=== PATIENT | female | born 1995 | race African-American/Black ===

== ENCOUNTER 2016-09-16 22:16 | Emergency (ER) | payer MEDICAID ==
--- NOTE | 2016-09-16 22:43 | EDM.PDOC ---
ED HPI GENERAL MEDICAL PROBLEM - General Chief Complaint: Abdominal Pain Stated Complaint: PT HAS PAIN ON LT SIDE Time Seen by Provider: 09/16/16 22:28 - History of Present Illness INITIAL COMMENTS - FREE TEXT/NARRATIVE: HISTORY AND PHYSICAL: History of present illness: Patient is 21-year-old female presents with concern of left upper quadrant abdominal pain 1 day she denies trauma denies fever chills nausea vomiting or urinary symptoms chest pain cough shortness of breath Review of systems: As per history of present illness and below otherwise all systems reviewed and negative. Past medical history: As per history of present illness and as reviewed below otherwise noncontributory. Surgical history: As per history of present illness and as reviewed below otherwise noncontributory. Social history: No reported history of drug or alcohol abuse. Family history: As per history of present illness and as reviewed below otherwise noncontributory. Physical exam: HEENT: Atraumatic, normocephalic, pupils reactive, negative for conjunctival pallor or scleral icterus, mucous membranes moist, throat clear, neck supple, nontender, trachea midline. Lungs: Clear to auscultation, breath sounds equal bilaterally, chest nontender. Heart: S1S2, regular, negative for clicks, rubs, or JVD. Abdomen: Soft, nondistended, nontender. Negative for masses or hepatosplenomegaly. Negative for costovertebral tenderness. Pelvis: Stable nontender. Genitourinary: Deferred. Rectal: Deferred. Extremities: Atraumatic, negative for cords or calf pain. Neurovascular unremarkable. Neuro: Awake, alert, oriented. Cranial nerves II through XII unremarkable. Cerebellum unremarkable. Motor and sensory unremarkable throughout. Exam nonfocal. Diagnostics: CBC CMP UA hCG chest x-ray Therapeutics: None Impression: #1 nonspecific abdominal pain Definitive disposition and diagnosis as appropriate pending reevaluation and review of above. Left Upper Abdomen Pain Score (Numeric/FACES): 4 - Related Data Allergies Allergy/AdvReac Type Severity Reaction Status Date / Time seosonal Allergy Sneezing Uncoded 09/16/16 22:29 Home Meds: Home Meds . [No Known Home Meds] 09/16/16 [History] Past Medical History - Past Health History Medical/Surgical History: Denies Medical/Surgical History Social & Family History - Family History Family Medical History: Noncontributory - Tobacco Use Smoking Status *Q: Never Smoker Second Hand Smoke Exposure: No - Caffeine Use Caffeine Use: Reports: None - Recreational Drug Use Recreational Drug Use: No ED ROS GENERAL - Review of Systems Review Of Systems: ROS reveals no pertinent complaints other than HPI. ED EXAM, GENERAL - Physical Exam Exam: See Below (See dictation) Course - Vital Signs Last Recorded V/S: Last Vital Signs Temp 36.4 C 09/16/16 22:23 Pulse 63 09/16/16 22:23 Resp 18 09/16/16 22:23 BP 140/86 09/16/16 22:23 Pulse Ox 99 09/16/16 22:23 - Orders/Labs/Meds Orders: Active Orders 24 hr Category Date Time Status Chest 1V Frontal [CR] Stat Exams 09/16/16 22:32 Ordered CBC WITH AUTO DIFF [HEME] Stat Lab 09/16/16 22:32 Ordered COMPREHENSIVE METABOLIC PN,CMP [CHEM] Stat Lab 09/16/16 22:32 Ordered HCG QUALITATIVE,URINE [URCHEM] Stat Lab 09/16/16 22:37 Received UA W/MICROSCOPIC [URIN] Stat Lab 09/16/16 22:37 Received Departure - Departure Time of Disposition: 22:42 Disposition: Home, Self-Care 01 Condition: Good Clinical Impression: Abdominal pain - Discharge Information Forms: ED Department Discharge Additional Instructions: The following information is given to patients seen in the emergency department who are being discharged to home. This information is to outline your options for follow-up care. We provide all patients seen in our emergency department with a follow-up referral. The need for follow-up, as well as the timing and circumstances, are variable depending upon the specifics of your emergency department visit. If you don't have a primary care physician on staff, we will provide you with a referral. We always advise you to contact your personal physician following an emergency department visit to inform them of the circumstance of the visit and for follow-up with them and/or the need for any referrals to a consulting specialist. The emergency department will also refer you to a specialist when appropriate. This referral assures that you have the opportunity for followup care with a specialist. All of these measure are taken in an effort to provide you with optimal care, which includes your followup. Under all circumstances we always encourage you to contact your private physician who remains a resource for coordinating your care. When calling for followup care, please make the office aware that this follow-up is from your recent emergency room visit. If for any reason you are refused follow-up, please contact the [facility] emergency department at and asked to speak to the emergency department charge nurse. MEGHAN [facility] [address] [place] [id number] Follow-up primary medical doctor and/or clinic as discussed return as needed as discussed - My Orders Last 24 Hours: My Active Orders 09/16/16 22:32 Chest 1V Frontal [CR] Stat CBC WITH AUTO DIFF [HEME] Stat COMPREHENSIVE METABOLIC PN,CMP [CHEM] Stat 09/16/16 22:37 HCG QUALITATIVE,URINE [URCHEM] Stat UA W/MICROSCOPIC [URIN] Stat - Assessment/Plan Last 24 Hours: My Active Orders 09/16/16 22:32 Chest 1V Frontal [CR] Stat CBC WITH AUTO DIFF [HEME] Stat COMPREHENSIVE METABOLIC PN,CMP [CHEM] Stat 09/16/16 22:37 HCG QUALITATIVE,URINE [URCHEM] Stat UA W/MICROSCOPIC [URIN] Stat
[2016-09-16 23:26] LABS: CHLORIDE,CL 103 mmol/L (98-110); SODIUM,NA 137 mmol/L (136-146)
[2016-09-16 23:49] VITALS: BP 127/84
--- NOTE | 2016-09-17 13:57 | CR ---
EXAM DATE: 09/16/16 PATIENT'S AGE: 21 Patient: SOLITARIO AVALOS Facility: [place], [place] Site . Site : 1995 Study: XRay Chest [id number]/9/2017 11:04:01 PM Ordering Physician: Shade Osuna Final Report: INDICATION: Left upper quadrant abdominal pain. TECHNIQUE: AP portable chest. FINDINGS: Shallow inspiration. Clear lungs. Normal heart size and pulmonary vascularity. Normal included skeletal thorax. IMPRESSION: Negative portable chest. Dictated by Surjit Easley MD @ 09/16/2016 11:31:05 PM Dictated by: Surjit Easley MD @ 09/16/2016 23:31:11 (Electronic Signature) Report Signed by Proxy. MONICA
== END 2016-09-16 23:48 | disposition home or self-care (01) ==
LOC: MW.ED 22:16
DX: R10.12 Left upper quadrant pain (principal)
CPT/HCPCS: 36415; 71010; 71010-26; 80053; 81001; 81025; 85025; 99282; 99284